=== PATIENT | male | born 1960 | race Hispanic/Latino ===

== ENCOUNTER 2020-10-08 12:13 | Inpatient (IN) | payer OTHER ==
--- NOTE | 2020-10-08 12:31 | ER ---
Nurse's Notes [facility] Name: Glynn Vega Jr Age: 60 yrs Sex: Male : 1960 Arrival Date: 10/08/2020 Time: 12:15 Bed 5 Private MD: Diagnosis: Other chest pain-angina;Essential (primary) hypertension;Obesity, unspecified Presentation: 10/08 12:17 Chief complaint: EMS states: was on a ship in the [facility] and has been having left sv sided chest pain and HTN for the past few days. Has been taking his regular medications. Coronavirus screen: Client denies travel out of the [place] in the last 14 days. At this time, the client does not indicate any symptoms associated with coronavirus-19. Ebola Screen: No symptoms or risks identified at this time. Initial Sepsis Screen: Does the patient meet any 2 criteria? No. Patient's initial sepsis screen is negative. Does the patient have a suspected source of infection? No. Patient's initial sepsis screen is negative. Risk Assessment: Do you want to hurt yourself or someone else? Patient reports no desire to harm self or others. Onset of symptoms was October 06, 2020. 12:17 Method Of Arrival: EMS: [facility] sv 12:17 Acuity: JEAN 2 sv Triage Assessment: 12:20 General: Appears in no apparent distress. comfortable, well groomed, well developed, sv Behavior is calm, cooperative, appropriate for age. Pain: Complains of pain in anterior aspect of left upper chest Pain currently is 5 out of 10 on a pain scale. EENT: Sclera/Cornea are reddened in right eye and left eye. Neuro: Level of Consciousness is awake, alert, obeys commands, Oriented to person, place, time, situation, Moves all extremities. Full function Gait is steady, Speech is normal. Cardiovascular: Patient's skin is warm and dry. Rhythm is sinus rhythm. Respiratory: Airway is patent Respiratory effort is even, unlabored, Respiratory pattern is regular, symmetrical. Derm: Skin is intact, Skin is pink, warm \T\ dry. Historical: - Allergies: 12:20 No Known Allergies; sv - PMHx: 12:20 Hypertension; sv - Immunization history:: Adult Immunizations up to date. - Social history:: Smoking status: unknown. - Family history:: not pertinent. Screenin:22 Abuse screen: Denies threats or abuse. Denies injuries from another. Nutritional sv screening: No deficits noted. Tuberculosis screening: No symptoms or risk factors identified. Fall Risk None identified. Assessment: 12:42 Reassessment: Patient appears in no apparent distress at this time. No changes from sv previously documented assessment. Patient and/or family updated on plan of care and expected duration. Pain level reassessed. Patient is alert, oriented x 3, equal unlabored respirations, skin warm/dry/pink. 12:59 Reassessment: Dr Connor at the bedside. sv Vital Signs: 12:17 BP 157 / 106; Pulse 84; Resp 20; Temp 98.2(O); Pulse Ox 98% ; sv 12:37 Weight 102.51 kg (M); sv 13:00 BP 141 / 97; Pulse 77; Resp 18; Pulse Ox 95% on R/A; sv 13:45 BP 126 / 91; Pulse 61; Resp 15; Pulse Ox 97% on R/A; sv 14:30 BP 129 / 92; Pulse 60 MON; Resp 22; Pulse Ox 96% on R/A; sv 14:30 Sinus Rhythm sv ED Course: 12:15 Patient arrived in ED. remedios 12:15 Cedric Conner MD is Attending Physician. remedios 12:16 Blanca Fuentes, ISABEL is Primary Nurse. sv 12:20 Triage completed. sv 12:20 Arm band placed on. sv 12:22 Patient has correct armband on for positive identification. Placed in gown. Bed in low sv position. Call light in reach. seasoner hand on. Pulse ox on. NIBP on. Head of bed elevated. 12:29 Kin Connor MD is Hospitalizing Provider. remedios 12:30 Inserted saline lock: 20 gauge in right antecubital area, using aseptic technique. sv ,using aseptic technique. done by Gisela HALL Blood collected. Patient maintains SpO2 saturation greater than 95% on room air. 12:30 No provider procedures requiring assistance completed. Patient admitted, IV remains in sv place. intact. 12:38 X-ray(s) taken. sv 12:39 XRAY Chest (1 view) In Process Unspecified. EDMS 19:09 Primary Nurse role handed off by Blanca Fuentes, ISABEL sv 10/09 04:50 Doug Lowe, RN is Primary Nurse. rr5 07:12 Primary Nurse role handed off by Doug Lowe RN sv 07:12 Blanca Fuentes, ISABEL is Primary Nurse. 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): Aspirin Chewable Tablet 162 mg PO once sv 12:42 Drug: Lovenox 1 mg/kg Route: Sub-Q; Site: left lower abdomen; sv 13:30 Follow up: Response: No adverse reaction sv 12:43 Drug: NS 0.9% 1000 ml Route: IV; Rate: 75 ml/hr; Site: right antecubital; sv 15:26 Follow up: Response: No adverse reaction; IV Status: Order to discontinue infusion sv 12:43 Drug: Lopressor (metoprolol TARTRATE) 50 mg Route: PO; sv 13:30 Follow up: Response: No adverse reaction sv 12:43 Drug: Nitro-Bid Ointment 2 % 1 inches Route: Transdermal; Site: anterior chest wall; sv 12:43 Drug: Tylenol 1000 mg Route: PO; sv 13:30 Follow up: Response: No adverse reaction sv Outcome: 12:30 Decision to Hospitalize by Provider. remedios 12:30 Admitted to ER Hold. Please see [facility] for further documentation. sv 12:30 Condition: stable 12:30 Instructed on the need for admit. 10/09 13:15 Patient left the ED. Signatures: Dispatcher [employer] EDBlanca Munoz, ISABEL HALL Cedric Conner MD MD cha Smirch, Shelby, RN RN Doug Lowe, ISABEL RN [email or web address]
--- NOTE | 2020-10-08 12:31 | EDPHYS ---
Physician Documentation [facility] Name: Glynn Vega Jr Age: 60 yrs Sex: Male : 1960 Arrival Date: 10/08/2020 Time: 12:15 Bed 5 Private MD: ED Physician Cedric Conner HPI: 10/08 12:24 This 60 yrs old Male presents to ER via EMS with complaints of Chest Pain, High remedios Blood Pressure. 12:24 The patient or guardian reports chest pain that is located primarily in the substernal remedios area, anterior chest wall, left. Onset: 2 day(s) ago. The pain does not radiate. Associated signs and symptoms: The patient has no apparent associated signs or symptoms. The chest pain is described as a pressure. Modifying factors: The symptoms are alleviated by nothing. the symptoms are aggravated by nothing. Severity of pain: At its worst the pain was mild in the emergency department the pain is unchanged. The patient has experienced similar episodes in the past, several times. Historical: - Allergies: 12:20 No Known Allergies; sv - PMHx: 12:20 Hypertension; sv - Immunization history:: Adult Immunizations up to date. - Social history:: Smoking status: unknown. - Family history:: not pertinent. ROS: 12:24 Constitutional: Negative for fever, chills, and weight loss, Eyes: Negative for injury, remedios pain, redness, and discharge, ENT: Negative for injury, pain, and discharge, Neck: Negative for injury, pain, and swelling, Respiratory: Negative for shortness of breath, cough, wheezing, and pleuritic chest pain, Abdomen/GI: Negative for abdominal pain, nausea, vomiting, diarrhea, and constipation, Back: Negative for injury and pain, : Negative for injury, bleeding, discharge, and swelling, MS/Extremity: Negative for injury and deformity, Skin: Negative for injury, rash, and discoloration, Neuro: Negative for headache, weakness, numbness, tingling, and seizure, Psych: Negative for depression, anxiety, suicide ideation, homicidal ideation, and hallucinations, Allergy/Immunology: Negative for hives, rash, and allergies, Endocrine: Negative for neck swelling, polydipsia, polyuria, polyphagia, and marked weight changes, Hematologic/Lymphatic: Negative for swollen nodes, abnormal bleeding, and unusual bruising. 12:24 Cardiovascular: Positive for chest pain, of the left clavicle, anterior aspect of left upper chest and left breast. Exam: 12:24 Constitutional: This is a well developed, well nourished patient who is awake, alert, remedios and in no acute distress. Head/Face: Normocephalic, atraumatic. Eyes: Pupils equal round and reactive to light, extra-ocular motions intact. Lids and lashes normal. Conjunctiva and sclera are non-icteric and not injected. Cornea within normal limits. Periorbital areas with no swelling, redness, or edema. ENT: Nares patent. No nasal discharge, no septal abnormalities noted. Tympanic membranes are normal and external auditory canals are clear. Oropharynx with no redness, swelling, or masses, exudates, or evidence of obstruction, uvula midline. Mucous membranes moist. Neck: Trachea midline, no thyromegaly or masses palpated, and no cervical lymphadenopathy. Supple, full range of motion without nuchal rigidity, or vertebral point tenderness. No Meningismus. Chest/axilla: Normal chest wall appearance and motion. Nontender with no deformity. No lesions are appreciated. Cardiovascular: Regular rate and rhythm with a normal S1 and S2. No gallops, murmurs, or rubs. Normal PMI, no JVD. No pulse deficits. Respiratory: Lungs have equal breath sounds bilaterally, clear to auscultation and percussion. No rales, rhonchi or wheezes noted. No increased work of breathing, no retractions or nasal flaring. Abdomen/GI: Soft, non-tender, with normal bowel sounds. No distension or tympany. No guarding or rebound. No evidence of tenderness throughout. Back: No spinal tenderness. No costovertebral tenderness. Full range of motion. Skin: Warm, dry with normal turgor. Normal color with no rashes, no lesions, and no evidence of cellulitis. MS/ Extremity: Pulses equal, no cyanosis. Neurovascular intact. Full, normal range of motion. Neuro: Awake and alert, GCS 15, oriented to person, place, time, and situation. Cranial nerves II-XII grossly intact. Motor strength 5/5 in all extremities. Sensory grossly intact. Cerebellar exam normal. Normal gait. Psych: Awake, alert, with orientation to person, place and time. Behavior, mood, and affect are within normal limits. 12:24 Musculoskeletal/extremity: ROM: intact in all extremities, full active range of motion, full passive range of motion, Circulation is intact in all extremities. Sensation intact. Compartment Syndrome exam of affected extremity: is normal. DVT Exam: No signs of deep vein thrombosis. no pain, no swelling, no tenderness, negative Homans' sign noted on exam, no appreciated bluish discoloration, no erythema, no increased warmth. 12:32 ECG was reviewed by the Attending Physician. remedios Vital Signs: 12:17 BP 157 / 106; Pulse 84; Resp 20; Temp 98.2(O); Pulse Ox 98% ; sv 12:37 Weight 102.51 kg (M); sv 13:00 BP 141 / 97; Pulse 77; Resp 18; Pulse Ox 95% on R/A; sv 13:45 BP 126 / 91; Pulse 61; Resp 15; Pulse Ox 97% on R/A; sv 14:30 BP 129 / 92; Pulse 60 MON; Resp 22; Pulse Ox 96% on R/A; sv 14:30 Sinus Rhythm sv MDM: 12:30 Patient medically screened. remedios 12:30 Differential diagnosis: abnormal EKG, coronary artery disease chest wall pain, remedios cholecystitis, Cholelithiasis hiatal hernia, pancreatitis, stable angina, unstable angina. HEART Score: ECG:. The patient was not given aspirin in the Emergency Department. Administered by EMS. The patient's deep vein thrombosis risk score was calculated as follows: Total Score: 0. This patient was found to be at low risk for a deep vein thrombosis by using the Well's assessment criteria. The patient's pulmonary embolism risk score was calculated as follows: Total Score: 0-2 points. This patient was found to be at low risk for a pulmonary embolism by using the Well's assessment criteria. CLARENCE Risk Score: 1 - Three or more CAD risk factors, 1 - ASA use in past 7 days, 1 - Recent [<24hrs] Severe Angina. Data reviewed: vital signs, nurses notes, lab test result(s), EKG, radiologic studies, plain films. Data interpreted: test hole driller: rate is 84 beats/min, rhythm is regular. Test interpretation: by ED physician or midlevel provider: ECG, plain radiologic studies. 10/08 12:23 Order name: Basic Metabolic Panel; Complete Time: 14:22 remedios 10/08 12:23 Order name: CBC with Diff; Complete Time: 12:45 [facility] 10/08 12:23 Order name: LFT's; Complete Time: 14:22 [facility] 10/08 12:23 Order name: Magnesium; Complete Time: 14:22 [facility] 10/08 12:23 Order name: NT PRO-BNP; Complete Time: 14:22 [facility] 10/08 12:23 Order name: PT-INR; Complete Time: 12:45 [facility] 10/08 12:23 Order name: Troponin (emerg Dept Use Only); Complete Time: 14:22 [facility] 10/08 12:23 Order name: Lipase; Complete Time: 14:22 [facility] 10/08 12:23 Order name: UDS; Complete Time: 14:22 [facility] 10/08 12:55 Order name: Urine Dipstick--Ancillary (enter results); Complete Time: 14:22 10/08 13:21 Order name: Lipid Profile [facility] 10/08 13:21 Order name: Troponin I [facility] 10/08 13:21 Order name: Troponin I [facility] 10/08 16:01 Order name: COVID-19 : Document "Date of Symptom Onset" if Symptomatic. sv 10/08 16:05 Order name: CORONAVIRUS [facility] 10/08 12:23 Order name: XRAY Chest (1 view) [facility] 10/08 12:23 Order name: EKG; Complete Time: 12:24 [facility] 10/08 12:23 Order name: Cardiac monitoring; Complete Time: 12:24 [facility] 10/08 12:23 Order name: EKG - Nurse/Tech; Complete Time: 12:24 [facility] 10/08 12:23 Order name: IV Saline Lock; Complete Time: 12:25 [facility] 10/08 12:23 Order name: Labs collected and sent; Complete Time: 12:25 [facility] 10/08 12:23 Order name: O2 Per Protocol; Complete Time: 12:33 [facility] 10/08 12:23 Order name: O2 Sat Monitoring; Complete Time: 12:33 [facility] 10/08 12:23 Order name: Urine Dipstick-Ancillary (obtain specimen); Complete Time: 15:26 [facility] 10/08 13:21 Order name: Heart Healthy [facility] 10/08 13:21 Order name: Echo with Doppler [facility] 10/08 15:59 Order name: EKG; Complete Time: 16:00 aa5 10/08 16:55 Order name: CORONAVIRUS EDMS 10/08 17:43 Order name: SARS-COV-2 RT PCR EDMS 10/08 22:36 Order name: Glucose, Ancillary Testing EDMS 10/09 10:52 Order name: Glucose, Ancillary Testing EDMS EC:32 Rate is 89 beats/min. Rhythm is regular. QRS Barnum is Normal. DC interval is normal. QRS remedios interval is normal. QT interval is normal. No Q waves. T waves are Normal. No ST changes noted. Clinical impression: NSR w/ Non-specific ST/T Changes and No evidence of ischemia. Reviewed by me. 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): Aspirin Chewable Tablet 162 mg PO once sv 12:42 Drug: Lovenox 1 mg/kg Route: Sub-Q; Site: left lower abdomen; sv 13:30 Follow up: Response: No adverse reaction sv 12:43 Drug: NS 0.9% 1000 ml Route: IV; Rate: 75 ml/hr; Site: right antecubital; sv 15:26 Follow up: Response: No adverse reaction; IV Status: Order to discontinue infusion sv 12:43 Drug: Lopressor (metoprolol TARTRATE) 50 mg Route: PO; sv 13:30 Follow up: Response: No adverse reaction sv 12:43 Drug: Nitro-Bid Ointment 2 % 1 inches Route: Transdermal; Site: anterior chest wall; sv 12:43 Drug: Tylenol 1000 mg Route: PO; sv 13:30 Follow up: Response: No adverse reaction sv Disposition: 10/08/20 12:30 Hospitalization ordered by Kin Connor for Inpatient Admission. Preliminary diagnosis are Other chest pain - angina, Essential (primary) hypertension, Obesity, unspecified. - Bed requested for [facility] ER HOLD. - Status is Inpatient Admission. ss - Condition is Stable. - Problem is new. - Symptoms have improved. Signatures: Dispatcher [employer] EDMI Blanca Fuentes RN RN Cedric Salvador MD MD cha Calderon, Audri, RN RN aa5 Shirin Pink RN RN ss Corrections: (The following items were deleted from the chart) 12:32 12:23 Aspirin Chewable Tablet 162 mg PO once ordered. remedios sv 13:40 12:30 Hospitalization Ordered by Kin Connor MD for Inpatient Admission. sv Preliminary diagnosis is Other chest pain - angina; Essential (primary) hypertension; Obesity, unspecified. Bed requested for Telemetry/MedSurg (observation). Status is Inpatient Admission. Condition is Stable. Problem is new. Symptoms have improved. [facility] 16:01 15:59 [facility] 15:59 EKG - Nurse/Tech ordered. [facility] 16:01 15:59 IV Saline Lock ordered. [facility] 16:01 15:59 Labs collected and sent ordered. [facility] 16:01 15:59 Oxygen Per Protocol ordered. [facility] 16:02 15:59 O2 Sat Monitoring ordered. [facility] 10/09 13:15 10/08 13:40 10/08/2020 12:30 Hospitalization Ordered by Kin Connor MD for ss Inpatient Admission. Preliminary diagnosis is Other chest pain - angina; Essential (primary) hypertension; Obesity, unspecified. Bed requested for [facility] ER HOLD. Status is Inpatient Admission. Condition is Stable. Problem is new. Symptoms have improved. sv
[2020-10-08 12:40] LABS: Absolute Lymphocytes (CBC) 2.6 K/uL (0.7-4.9); Basophils % 1.1 % (0-1.3); Hematocrit 53.7 % (39.6-49.0); Lymphocytes % 31.8 % (15.3-44.8); MPV 7.6 fL (7.6-11.3); RBC Red Blood Cell Count 5.77 M/uL (4.33-5.43)
[2020-10-08 12:41] LABS: Protime INR 1.05
[2020-10-08] MEDS ORDERED: METOPROLOL TAR 50 MG TAB ONE (12:43)
[2020-10-08] MEDS ORDERED: NITROGLYCERIN 1 GM PKT TD ONE (12:43)
[2020-10-08] MEDS ORDERED: ACETAMINOPHEN 500 MG TAB ONE (12:43)
[2020-10-08] MEDS ORDERED: NA CHLORIDE 0.9% 1,000 ML ONE (12:44)
[2020-10-08] MEDS ORDERED: ENOXAPARIN 100 MG/ML SYR SQ ONE (12:44)
[2020-10-08 13:07] LABS: ALT/SGPT 28 U/L (12-78); AST/SGOT 16 U/L (15-37); Albumin 3.7 g/dL (3.4-5.0); Alkaline Phosphatase 66 U/L (45-117); BUN Blood Urea Nitrogen 12 mg/dL (7-18); Bicarbonate 31 mmol/L (21-32); Bilirubin Direct 0.1 mg/dL (0-0.2); Bilirubin Total 0.6 mg/dL (0.2-1.0); Glucose Level 132 mg/dL (74-106); Lipase 144 U/L (73-393); Magnesium 2.4 mg/dL (1.8-2.4); NT PRO-BNP 15 pg/mL (<125); Potassium 3.6 mmol/L (3.5-5.1); Protein, Total 8.2 g/dL (6.4-8.2); Sodium Level 141 mmol/L (136-145); Troponin (Emerg Dept Use Only) < 0.02 ng/mL (0.0-0.045)
[2020-10-08 13:10] LABS: Barbiturates NEGATIVE (NEGATIVE); Benzodiazepines NEGATIVE (NEGATIVE); Cocaine NEGATIVE (NEGATIVE); METHAMPHETAM NEGATIVE (NEGATIVE); Methadone NEGATIVE (NEGATIVE); Opiates NEGATIVE (NEGATIVE); Phencyclidine NEGATIVE (NEGATIVE); THC Cannibis NEGATIVE (NEGATIVE)
[2020-10-08] MEDS ORDERED: NITROGLYCERIN 0.4 MG/TAB SL PRN (13:18)
[2020-10-08] MEDS ORDERED: MORPHINE 2 MG/ML SYR IV PRN (13:42)
[2020-10-08 14:07] LABS: Urine Blood 1+ (NEG); Urine Glucose TRACE (NEG); Urine Protein 3+ (NEG)
[2020-10-08 14:48] VITALS: BMI 34.2
[2020-10-08] MEDS ORDERED: INFLUENZA VACCINE (for 3y+) 0.5 ML DOSE IMVAC ONE (16:00)
--- NOTE | 2020-10-08 16:58 | P.HP ---
Certification for Inpatient With expected LOS: >2 Midnights Patient will require the following post-hospital care: None Practitioner: I am a practitioner with admitting privileges, knowledge of patient current condition, hospital course, and medical plan of care. Services: Services provided to patient in accordance with Admission requirements found in Title 42 Section 412.3 of the Code of Federal Regulations Patient History Date of Service: 10/08/20 (Hospitalist) Reason for admission: Chest pain History of Present Illness: Pt is 60 yrs of age AW chest pain/ for 2 days. No prior HX of CAD. Pt [facility] was on [place] no prior history of chest pain chest pain last about an hr patient is a poor historian he does not live in [facility] Allergies No Known Allergies Allergy (Unverified 10/08/20 13:12) Home Medications: Unobtainable 10/08/20 - Past Medical/Surgical History -: HTN -: Diabetes - Social History Smoking Status: Never smoker Review of Systems 10-point ROS is otherwise unremarkable Physical Examination - Physical Exam General: Alert, Oriented x3 HEENT: Atraumatic Neck: Supple Cardiovascular: No edema, Normal S1 S2 Gastrointestinal: Normal bowel sounds, Soft and benign Musculoskeletal: No clubbing Integumentary: No rashes, No significant lesion - Studies Laboratory Data (last 24 hrs) 10/08/20 12:24: PT 12.1, INR 1.05 10/08/20 12:24: WBC 8.10, Hgb 17.7, Hct 53.7 H, Plt Count 212 10/08/20 12:24: Sodium 141, Potassium 3.6, BUN 12, Creatinine 1.03, Glucose 132 H, Magnesium 2.4, Total Bilirubin 0.6, AST 16, ALT 28, Alkaline Phosphatase 66, Lipase 144 Assessment and Plan - Plan Patient is 60 years of age admitted with chest pain suggestive of unstable angina no prior history of chest pain poor historian he has diabetes hypertension negative troponin normal EKG he is high risk for coronary artery disease discuss with cardiology for cardiac catheterization vital signs are stable will fully anti coagulated beta-blockers Lovenox - Advance Directives Does patient have a Living Will: No Does patient have a Durable POA for Healthcare: No
[2020-10-08] MEDS ORDERED: INSULIN -REGULAR HUMAN 50 UNIT/0.5 ML ML SQ SCH (18:00)
[2020-10-08] MEDS: METOPROLOL TAR 25 MG TAB PO SCH (20:25)
[2020-10-08 20:35] LABS: HDL Cholesterol 33 mg/dL (40-60); LDL Cholesterol, Calculated 80 (<130); Troponin I < 0.02 ng/mL (0.0-0.045)
[2020-10-08] MEDS ORDERED: METOPROLOL TAR 25 MG TAB ONE (20:36)
[2020-10-08] MEDS ORDERED: ATORVASTATIN 20 MG TAB ONE (20:36)
[2020-10-08] MEDS: ENOXAPARIN 100 MG/ML SYR SQ SCH (21:00)
[2020-10-08] MEDS ORDERED: ATORVASTATIN 40 MG TAB PO SCH (21:00)
[2020-10-09] MEDS: METOPROLOL TAR 25 MG TAB PO SCH (06:00)
[2020-10-09] MEDS ORDERED: METOPROLOL TAR 25 MG TAB ONE (06:32)
[2020-10-09] MEDS ORDERED: ASPIRIN 325 MG TAB ONE (07:54)
[2020-10-09] MEDS ORDERED: ENOXAPARIN 100 MG/ML SYR SQ ONE (07:55)
[2020-10-09] MEDS: ENOXAPARIN 100 MG/ML SYR SQ SCH (08:32)
[2020-10-09] MEDS ORDERED: ASPIRIN 325 MG TAB PO SCH (09:00)
[2020-10-09] MEDS ORDERED: NA CHLORIDE 0.9% 500 ML ONE (09:15)
--- NOTE | 2020-10-09 09:52 | CON ---
Date of Consultation: 10/08/2020 Admitted with chest pain to Dr. Vences on 10/08/2020. I saw the patient on 10/08/2020. Reason For Consultation: Unstable angina. History Of Present Illness: Mr. Goldsmith is a 60-year-old male from the [facility]. He works on a b oat, was brought in from [place] to the hospital because of symptoms of classic unstable angina. He describes substernal pressure radiating to his left arm and back, which showed shortness of breath, diaphoresis. No nausea, vomiting. Denied PND, orthopnea, pedal edema, palpitations, or syncope. EK G showed nonspecific changes. Chest x-ray was negative. Troponin was negative. He is still having pain now. He has already received Lovenox and aspirin and he is on a low-dose metoprolol. Past Medical History: Hypertension. Medications: At home are none. Review of Systems: Negative. Social History: Negative. Family History: Negative. Physical Examination: Vital Signs: Stable. Afebrile. HEENT: Negative. Neck: Supple without any bruit, lymphadenopathy, JVD, or thyromegaly. Chest: Clear to auscultation and percussion. Cardiac: Revealed a regular rhythm and rate. No murmurs, gallops, rubs. Abdomen: Benign. Extremities: Revealed no clubbing, cyanosis, or edema. Diagnostic Data: All listed earlier. Impression And Plan: Unstable angina. Symptoms are very worrisome for coronary artery disease. He has ruled out for myocardial infarction. Unable to do any stress testing because of the lack of nucl ear material secondary to the weather. Unable to do echocardiography because of unavailability of __ and then because of the weather. I suggested a left heart catheterization before he goes ba ck to normal activities to define his coronary anatomy. The patient understands the risk and the allegra efits of the procedure and he agrees to proceed. Continue present regimen for now. We will see what the catheterization shows. TRISHA/MODL Voice ID: [id number] Report ID: [id number]
[2020-10-09] MEDS ORDERED: MIDAZOLAM HCL 2 MG/2 ML INJ ONE ×2 (10:56→11:24)
[2020-10-09] MEDS ORDERED: NA CHLORIDE 0.9% 0 ML ONE (10:57)
[2020-10-09] MEDS ORDERED: ATROPINE SULF 1 MG/10 ML SYR IV ONE (10:57)
[2020-10-09] MEDS ORDERED: FENTANYL CITR 100 MCG/2 ML ONE (10:57)
[2020-10-09] MEDS ORDERED: LIDOCAINE 1% 20 ML MDV ONE (11:16)
[2020-10-09] MEDS ORDERED: HEPA 1000U/500MLS 1,000 UNIT/500 ML BAG IV ONE (11:16)
--- NOTE | 2020-10-09 11:49 | OP ---
Date of Procedure: 10/09/2020 Surgeon: Shade Rm MD Human Service Coordinator: Josafat Taran. Total conscious sedation was 45 minutes. The patient will remain at bedrest for 2 hours after the ca theterization. He will go home after that and follow up in 2 weeks. He lives in the [facility]. He should be on aspirin, low-dose beta ashley and statin. Admitted to Dr. Vences on 10/08/2020 with unstable angina. The patient was brought to the [facility] a nd underwent a left heart catheterization with selective coronary arteriogram. Indication: Unstable angina. History Of Present Illness: Mr. Goldsmith is 60, was admitted with unstable angina, ruled out for an DC. EKG was normal, but his symptoms were very suggestive of CAD. Description Of Procedure: He was brought to the [facility] today as an inpatient. He was prepped and draped in the routine sterile fashion. Given Versed and fentanyl for sedation. Using the Seldinger technique, 10 cc of xylocaine were used locally in the right common femoral artery area. A 6-Cameroonian sheath was introduced there. Angio-Seal was used to close the case. Angiography there was normal. Antonella catheter left and right were used to select the left main and right main respectively. The l eft main was normal. The LAD was normal. Circumflex was normal. RCA was normal. A 50% to 60% sten osis was noted in a large first diagonal. There were no complications. Blood Loss: 5 mL. Postoperative Diagnosis: Moderate coronary artery disease. Plan: Plan is for medical therapy. TRISHA/ALBERTINA Voice ID: [id number] Report ID: [id number]
--- NOTE | 2020-10-09 12:33 | P.DS ---
Admission Date: 10/08/20 Discharge Date: 10/09/20 Primary Care Provider: From the [facility] Disposition: ROUTINE DISCHARGE Discharge Condition: GOOD Reason for Admission: Chest pain Consultations: Cardiology-Dr. Rm Procedures: COVID: Negative Heart Catheterization: Date of Procedure: 10/09/2020 Surgeon: Shade Rm MD Flour Blender Helper: Mr. Chirinos. Total conscious sedation was 45 minutes. The patient will remain at bedrest for 2 hours after the catheterization. He will go home after that and follow up in 2 weeks. He lives in the [facility]. He should be on aspirin, low-dose beta ashley and statin. Admitted to Dr. Vences on 10/08/2020 with unstable angina. The patient was brought to the general laborer and underwent a left heart catheterization with selective coronary arteriogram. Indication: Unstable angina. History Of Present Illness: Mr. Goldsmith is 60, was admitted with unstable angina, ruled out for an MT. EKG was normal, but his symptoms were very suggestive of CAD. Description Of Procedure: He was brought to the general laborer today as an inpatient. He was prepped and draped in the routine sterile fashion. Given Versed and fentanyl for sedation. Using the Seldinger technique, 10 cc of xylocaine were used locally in the right common femoral artery area. A 6-Sinhala sheath was introduced there. Angio-Seal was used to close the case. Angiography there was normal. Antonella catheter left and right were used to select the left main and right main respectively. The left main was normal. The LAD was normal. Circumflex was normal. RCA was normal. A 50% to 60% stenosis was noted in a large first diagonal. There were no complications. Blood Loss: 5 mL. Postoperative Diagnosis: Moderate coronary artery disease. Plan: Plan is for medical therapy. Medical Problem List: Chest pain secondary to unstable angina status post heart catheterization showing 50-60% stenosis of the large 1st diagonal, Left main normal, LAD normal, circumflex normal, RCA normal indicative of moderate Coronary artery disease Hypertension Hyperlipidemia Brief History of Present Illness: 60-year-[address] [facility] the [place] presented with chest pain. 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 Pain was substernal in nature. It radiated to the left arm. Mild shortness of breath noted. Patient admitted for further evaluation and treatment. Initial cardiac enzymes unremarkable. Hospital Course: Patient presented with chest pain secondary to unstable angina. Patient was seen and evaluated by Cardiology. Cardiology recommended heart catheterization for further evaluation as cardiac stress test could not be performed. This was also considered as the patient was also from the [facility] currently on a ship visiting in the area. Heart catheterization performed showed 50-60% stenosis of the large 1st diagonal, left main normal, LAD normal, circumflex normal, and RCA normal. This was indicative of moderate Coronary artery disease. Cardiology recommended medical management. LDL 80. Urine drug screen negative. COVID test negative. At discharge patient will continue with aspirin 81 mg daily, metoprolol 25 mg 1 pill twice daily, and Lipitor 40 mg daily. Patient will return to the ship with utility agent. Recommend follow up in his the [place] [facility] in 1-2 weeks to follow up this hospitalization. Recommend to establish care with Cardiology there to continue to monitor and adjust medication. Education on CAD, chest pain, hypertension and hyperlipidemia will be provided. Lifestyle modification education provided. Continue with heart healthy diet. Patient with hypertension. As mentioned above patient will continue with metoprolol 25 mg 1 pill twice daily. Recommend to monitor blood pressure at least once daily. Recommend to maintain blood pressure less than 130/80. If blood pressure is below 110 systolic or heart less than 50 he may hold metoprolol. If blood pressure remains above 140/90 then further adjustment may be required. This can be done with the help of his PCP or cardiology. Patient with hyperlipidemia. As mentioned above patient will continue with Lipitor 40 mg daily. Recommend to recheck fasting lipid panel and CMP in 4-6 we eks to monitor his progress. Further adjustment in medication can be done by his PCP or cardiology. Vital Signs/Physical Exam: Temp Pulse Resp BP Pulse Ox 97.3 F 71 16 135/91 H 95 10/09/20 12:15 10/09/20 12:15 10/09/20 12:15 10/09/20 12:15 10/09/20 08:00 General: Alert, In no apparent distress, Oriented x3, Cooperative HEENT: Atraumatic Neck: Supple Respiratory: Clear to auscultation bilaterally, Normal air movement Cardiovascular: Normal pulses, Regular rate/rhythm Gastrointestinal: Normal bowel sounds, Soft and benign, Non-distended, No tenderness, No masses, No rebound, No guarding Integumentary: No tenderness/swelling, No erythema, No warmth, No cyanosis Neurological: Normal speech, Normal strength at 5/5 x4 extr, Normal tone, Normal affect Laboratory Data at Discharge: WBC Cancelled 10/08/20 15:59 Hgb Cancelled 10/08/20 15:59 Hct Cancelled 10/08/20 15:59 Plt Count Cancelled 10/08/20 15:59 PT Cancelled 10/08/20 15:59 INR Cancelled 10/08/20 15:59 APTT Cancelled 10/08/20 15:59 Sodium Cancelled 10/08/20 15:59 Potassium Cancelled 10/08/20 15:59 BUN Cancelled 10/08/20 15:59 Creatinine Cancelled 10/08/20 15:59 Glucose Cancelled 10/08/20 15:59 Magnesium Cancelled 10/08/20 15:59 Total Bilirubin Cancelled 10/08/20 15:59 AST Cancelled 10/08/20 15:59 ALT Cancelled 10/08/20 15:59 Alkaline Phosphatase Cancelled 10/08/20 15:59 Troponin I < 0.02 ng/mL (0.0-0.045) 10/09/20 04:10 Triglycerides 214 mg/dL (<150) H 10/08/20 20:06 Cholesterol 156 mg/dL (<200) 10/08/20 20:06 HDL Cholesterol 33 mg/dL (40-60) L 10/08/20 20:06 Cholesterol/HDL Ratio 4.73 10/08/20 20:06 Lipase Cancelled 10/08/20 15:59 Home Medications: Aspirin [Aspirin EC 81 MG] 81 mg PO DAILY #90 tablet. 10/09/20 Atorvastatin Calcium [Lipitor] 40 mg PO BEDTIME #30 tab 10/09/20 Metoprolol Tartrate [Lopressor*] 25 mg PO BID 6AM 6PM #60 tab 10/09/20 New Medications: Aspirin [Aspirin EC 81 MG] 81 mg PO DAILY #90 tablet. Atorvastatin Calcium [Lipitor] 40 mg PO BEDTIME #30 tab Metoprolol Tartrate [Lopressor*] 25 mg PO BID 6AM 6PM #60 tab Physician Discharge Instructions: Follow up with PCP in the [facility] in 1-2 weeks. Patient presented with chest pain secondary to unstable angina. Patient was seen and evaluated by Cardiology. Cardiology recommended heart catheterization for further evaluation as cardiac stress test could not be performed. This was also considered as the patient was also from the [facility] currently on a ship visiting in the area. Heart catheterization performed showed 50-60% stenosis of the large 1st diagonal, left main normal, LAD normal, circumflex normal, and RCA normal. This was indicative of moderate Coronary artery disease. Cardiology recommended medical management. LDL 80. Urine drug screen negative. COVID test negative. At discharge patient will continue with aspirin 81 mg daily, metoprolol 25 mg 1 pill twice daily, and Lipitor 40 mg daily. Patient will return to the ship with utility agent. Recommend follow up in his the [place] [facility] in 1-2 weeks to follow up this hospitalization. Recommend to establish care with Cardiology there to continue to monitor and adjust medication. Education on CAD, chest pain, hypertension and hyperlipidemia will be provided. Lifestyle modification education provided. Continue with heart healthy diet. Patient with hypertension. As mentioned above patient will continue with metoprolol 25 mg 1 pill twice daily. Recommend to monitor blood pressure at least once daily. Recommend to maintain blood pressure less than 130/80. If blood pressure is below 110 systolic or heart less than 50 he may hold metoprolol. If blood pressure remains above 140/90 then further adjustment may be required. This can be done with the help of his PCP or cardiology. Patient with hyperlipidemia. As mentioned above patient will continue with Lipitor 40 mg daily. Recommend to recheck fasting lipid panel and CMP in 4-6 weeks to monitor his progress. Further adjustment in medication can be done by his PCP or cardiology. Followup: NONE,NONE [Primary Care Provider] - Time spent managing pt's care (in minutes): 55
[2020-10-09 13:19] VITALS: BP 134/94; TEMP 97; O2SAT 98
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
== END 2020-10-09 15:47 | disposition home or self-care (01) | DRG 287 ==
LOC: ER 12:13 → ERHOLD 13:38
PROVIDERS: ADMIT Internal Medicine Sleep Medicine; ATTEND Family Medicine
PROC: 4A023N7 Measurement of Cardiac Sampling and Pressure, Left Heart, Percutaneous Approach (ICD-10-PCS; principal; 2020-10-09)
PROC: B2111ZZ Fluoroscopy of Multiple Coronary Arteries using Low Osmolar Contrast (ICD-10-PCS; 2020-10-09)
DX: I25.110 Atherosclerotic heart disease of native coronary artery with unstable angina pectoris (principal); I10 Essential (primary) hypertension; E11.9 Type 2 diabetes mellitus without complications; E78.5 Hyperlipidemia, unspecified; Z79.82 Long term (current) use of aspirin; Z79.899 Other long term (current) drug therapy; Z20.822 Contact with and (suspected) exposure to COVID-19
CPT/HCPCS: 36415; 71045; 80048; 80061; 80076; 80307; 81003; 82947; 83690; 83735; 83880; 84484; 85025; 85610; 93454; 96360; 96361; 96372; 99285; C1760; C1893; J0583; J1644; J1650; J2250; J3010; J7030; J7040; U0003